=== PATIENT | male | born 1940 | race Caucasian/White ===

== ENCOUNTER 2016-10-19 10:05 | Day surgery (SDC) | payer MEDICARE ==
[~2016-10-19] VITALS: Ht 180.3 cm; Wt 121.5 kg
[2016-10-19] MEDS ORDERED: NEUR400C PO (10:57)
[2016-10-19] MEDS ORDERED: JANT10TA PO (10:57)
[2016-10-19] MEDS ORDERED: ROSU5 PO (10:57)
[2016-10-19] MEDS ORDERED: ASPI81CH7 CHEW (10:57)
[2016-10-19] MEDS ORDERED: AMLO5 PO (10:57)
[2016-10-19] MEDS ORDERED: CARV3.125 PO (10:57)
[2016-10-19] MEDS ORDERED: CARB200T PO (10:57)
[2016-10-19] MEDS ORDERED: BENA10TA PO (10:57)
[2016-10-19] MEDS ORDERED: METF1000 PO (10:57)
[2016-10-19 11:00] VITALS: BP 185/74; PULSE 70; RESP 18; TEMP 97.9; O2SAT 96
[2016-10-19 11:24] LABS: AUTOMATED NEUTROPHIL # 3.7 TH/MM3 (1.8-7.7); BASOPHIL % 0.7 % (0.0-2.0); EOSINOPHIL # 0.2 TH/MM3 (0-0.4); EOSINOPHIL % 3.2 % (0.0-4.0); HEMATOCRIT 35.5 % (39.0-51.0); HEMO FLAGS DIFF FINAL; MEAN CELL VOLUME 88.7 FL (80.0-100.0); MEAN CORPUSCULAR HEMOGLOBIN 30.7 PG (27.0-34.0); MEAN CORPUSCULAR HGB CONC 34.7 % (32.0-36.0); MONO % 8.1 % (0.0-8.0); PLATELET COUNT 163 TH/MM3 (150-450); RED BLOOD COUNT 4.01 MIL/MM3 (4.50-5.90); RED CELL DISTRIBUTION WIDTH 14.4 % (11.6-17.2); WHITE BLOOD COUNT 5.4 TH/MM3 (4.0-11.0)
[2016-10-19 11:34] LABS: APTT (PATIENT) 29.2 SEC (24.3-30.1); INTERNATIONAL NORMALIZED RATIO 1.2 RATIO; PROTHROMBIN TIME - PATIENT 13.7 SEC (9.8-11.6)
[2016-10-19 11:41] LABS: BICARBONATE 29.9 MEQ/L (21.0-32.0); POTASSIUM 4.2 MEQ/L (3.5-5.1)
[2016-10-19] MEDS ORDERED: NS 1000P @30 MLS/HR (KVO) IV SCH (11:45)
[2016-10-19] MEDS ORDERED: ASPIRIN 81 MG CHEW TAB PO SCH (11:45)
[2016-10-19] MEDS ORDERED: IOHEXOL 350 MG/ML 50 ML BTL (for Cath Lab) OTHER ONE (12:15)
[2016-10-19] MEDS ORDERED: IOHEXOL 350 MG/ML 100 ML BTL (for Cath Lab) OTHER ONE (12:15)
[2016-10-19] MEDS ORDERED: HEPARIN-NS/PF INJ 500 ML ONE (12:17)
[2016-10-19] MEDS ORDERED: MIDAZOLAM HCL 2 MG/2 ML VIAL ONE (12:46)
[2016-10-19] MEDS ORDERED: HEPARIN SODIUM - IV 10,000 UNITS/10 ML VIAL ONE (12:59)
[2016-10-19] MEDS ORDERED: TIROFIBAN INFUSION INJ 250 ML IV ONE (13:02)
[2016-10-19] MEDS ORDERED: CLOPIDOGREL 300 MG TAB ONE (13:12)
[2016-10-19] MEDS ORDERED: ASPIRIN 81 MG CHEW TAB ONE (13:19)
[2016-10-19] MEDS: TIROFIBAN INFUSION INJ 250 ML IV SCH ×2 (13:25→23:21)
[2016-10-19] MEDS ORDERED: MISC INFORMATION XX ONE (13:30)
[2016-10-19] MEDS ORDERED: SODIUM CHLORIDE 0.9% FLUSH 10 ML FLUSH PRN (13:30)
--- NOTE | 2016-10-19 13:49 | CATHPROC ---
[facility] HIS Report Study Information Study Number Admission Scheduled Start Study Start [id number] Oct 19 2016 10:05AM 10/19/2016 Oct 19 2016 12:04PM [place] Service Cardiac Catheterization Admit Source Facility Department Other [facility] - Slot Supervisor Physician and Clinical Staff Initial Christo Jennings Heat Treater Helper [facility],SARA Recorder Jone Mcgowan,RT(R) TECH2 Scrub Miquel Garza RCIS(BS) X-Ray Osmar Jean,RT(R) Procedures Performed Procedure Location (Site) Vessel Name Angiogram LV LV Ventricle Coronary Angiograms LCA Left Coronary Coronary Angiograms RCA Right Coronary L Heart Cath Stent LAD Mid Left Coronary Wire insertion Fem Art (right) Femoral Art Equipment Time Test Director Description Size Mfg Part Number Used/Scraped [id number] 12:59 [employer] WIRE, ASAHI PROWATER 180CM 180CM Used *[id number] CATHETER, FR5 SWAN DIPESH 12:34 MEADOWS SANCHEZ FR 5 110F5 *[id number] Used MONITOR TRANSDUCER, TRUWAVE [id number] 12:34 MEADOWS SANCHEZ * Used W/STOCKCOCK *[id number] TRANSDUCER, TRUWAVE [id number] 12:34 MEADOWS SANCHEZ * Used W/STOCKCOCK *[id number] 538-422 *[id number] [id number] *[id number] *[id number] 12:34 [employer] INDUSTRIES PACK, CCL CUSTOM * Used *[id number] 12:34 [employer] PACER PEN, SKIN DUAL W/ RULER * Used *[id number] 13:08 [employer] STENT, 2.5 12 INTEGRITY 2.5 12 Used *[id number] 13:11 [employer] MEDICAL 30 PENELOPE INDEFLATOR Used *[id number] 13:07 [employer] MEDICAL SHEATH, FR5.5 PRELUDE 11CM FR 5 [id number] Used [id number] 13:01 [employer] MEDICAL SHEATH, FR6.5 PRELUDE 11CM FR 6.5 [id number] Used *[id number] 12:34 [employer] MEDICAL WIRE, 3MMJ .035 180CM 180CM Used *[id number] 12:34 NAMIC MANIFOLD, 4 PORT * Used *[id number] 12:34 [employer] OMNIPAQUE, 350 MG, 150ML 150ML [id number] Used [id number] 12:34 [employer] BLANKET,WARM AIR CCL * Used *[id number] 12:34 TERUM[employer] MEDICAL SHEATH, FR4 TERUMO (10CM) FR 4 [id number] Used Equipment Model, Serial, Lot Number and Expiration Data Description Model Number Serial Number Lot Number Expiration Date STENT, 2.5 12 INTEGRITY [id number] 04-15-2017 History: Current Medications Medication Dosage/Unit Route Frequency Last Date/Time Taken Statins (any) Beta Sherin ASA Coumadin Glucophage NORVASC PLAVIX History: Allergies Allergy Reaction No Known Allergies History: Risk Factors Family History of Hypertension Dyslipidemia Previous ND Previous Heart Failure Premature CAD Yes Yes Yes No No Prior Valve Prior PCI Prior PCIDate Prior CABG Surgery No Yes 10/12/2014 No Cerebrovascular Peripheral Artery Chronic Lung On Dialysis Diabetes Diabetes Therapy Disease Disease Disease No Yes No No Yes Oral History: CV Disease Selection Items Known CAD History: Stress Tests Stress or Imaging Studies Performed Yes Standard Exercise Stress Test No Stress Echo No Stress Test SPECT Stress Test SPECT Result Yes Indeterminant Stress Test CMR No Cardiac CTA Coronary Calcium Score No No History: Other Disease Selection Items CAD HTN Stroke History: Other Current Smoker Method Quit Packs a Day Years Used Pack Years No Cigarettes 22 Years Ago 1 20 20 Labs Hgb (g/dl) Hct (%) WBC (l/cumm) Platelets (thousands) 12.00-18.00 37.00-55.00 4.80-10.80 140.00-450.00 12.3 35.5 5.4 163 BUN (mg/dl) Creatinine (mg/dl) BUN:Creatinine (1:x) 8.00-20.00 0.10-9.00 10.00-20.00 14 0.9 15.6 Na (meq/l) K (meq/l) 138.00-146.00 3.80-5.10 138 4.2 INR (PTT:PT) 0.50-2.00 1.2 CPK-MB (ng/ML) 0.00-7.00 Not Drawn Medication Medication Total Dose (Bolus/Oral) Medication Total Dosage/Unit 1% XYLOCAINE 20 mL AGGRASTAT BOLUS 60 meq/kg ASPIRIN 162 mg HEPARIN 8400 units PLAVIX 600 mg VERSED 1 mg Medications (Bolus/Oral) Medication Time Given Dosage/Unit Administered By Reason VERSED 10/19/2016 12:47:10 PM 1 mg [facility] 1 mg VERSED given in lab by [facility]o Plaza RN via Peripheral IV. Ordered by Christo Howard. 1% XYLOCAINE 10/19/2016 12:47:20 PM 20 mL Christo Howard 20 mL 1% XYLOCAINE given in lab by Christo Howard in Right Groin via Subcutaneous. Ordered by Christo Tran. HEPARIN 10/19/2016 1:00:00 PM 8400 units [facility] 8400 units HEPARIN given in lab by [facility]o [facility] RN via Peripheral IV. Ordered by Christo Howard. AGGRASTAT BOLUS 10/19/2016 1:16:00 PM 60 meq/kg [place] [place] 60 meq/kg AGGRASTAT BOLUS given in lab by [facility]o [facility] RN via Peripheral IV. Amount given = 7200 me q. Ordered by Christo Howard. PLAVIX 10/19/2016 1:20:00 PM 600 mg [place] [place] 600 mg PLAVIX given in lab by [facility]o [facility] RN via Oral. Ordered by Christo Howard. ASPIRIN 10/19/2016 1:21:00 PM 162 mg [facility] 162 mg ASPIRIN given in lab by [facility]o [facility] RN via Subcutaneous. Ordered by Christo Howard. Medication (Drip) Medication Time Given Dosage/Unit Concentration/Unit Diluent (ml) Solution AGGRASTAT DRIP 10/19/2016 1:18:00 PM 0.15 mcg/kg/min 12.5 mg 250 NaCl .9 0.15 mcg/kg/min AGGRASTAT DRIP given in lab by [facility]o Plaza RN via Peripheral IV. Pump/Drip Flow = 21.6 ml/hr using NaCl .9 with a concentration of 12.5 mg in 250 ml. Ordered by Christo Howard. IV Solutions 10/19/2016 12:20:50 PM 0 mL (IV) 500 NaCl .9 Patient arrived on IV Solutions via Peripheral IV. Pump/Drip Flow = 20 ml/hr using NaCl .9. Ordered b Christo Vizcarra. Initial Case Assessment Cardiovascular HR Rhythm NIBP Chest Pain 89 af 115/69 0 Edema Present Skin color Skin None Normal Warm Dry Circulatory - Right Pulses Dorsalis Pedis Femoral 2 2 Scale (0,1,2,3,4,d) Circulatory - Left Pulses Dorsalis Pedis Femoral 2 2 Scale (0,1,2,3,4,d) Circulatory - Lower Extremities Color Lower Right Color Lower Left Normal Normal Neurological State Oriented to time-place- Alert Moves all extremities person Respiration - General SpO2 (%) 94 Final Case Assessment Cardiovascular Edema Present Skin color Skin None Normal Warm Dry Circulatory - Right Pulses Dorsalis Pedis Femoral 2 2 Scale (0,1,2,3,4,d) Circulatory - Left Pulses Dorsalis Pedis Femoral 2 2 Scale (0,1,2,3,4,d) Circulatory - Lower Extremities Color Lower Right Color Lower Left Normal Normal Neurological State Oriented to time-place- Alert Moves all extremities person Final Case Assessment Cardiovascular HR Rhythm NIBP Chest Pain 70 pacer 174/95 0 Edema Present Skin color Skin None Normal Warm Dry Circulatory - Right Pulses Dorsalis Pedis Femoral 2 2 Scale (0,1,2,3,4,d) Circulatory - Left Pulses Dorsalis Pedis Femoral 2 2 Scale (0,1,2,3,4,d) Circulatory - Lower Extremities Color Lower Right Color Lower Left Normal Normal Neurological State Oriented to time-place- Alert Moves all extremities person Respiration - General SpO2 (%) 97 Chronological Log Time Study Chronological Log 12:15:25 Patient arrived via Bed. Vitals capture started with the following parameters, Patient=Adult, Interval=5 min, Initial Pr cyrhub=567 mmHg, 12:18:02 Deflation Rate=5 mmHg 12:19:06 Patient Name, D.O.B, / Armband Verified By R.N. 12:19:07 Consent signed by the physician and the patient and verified by the Slot Supervisor staff. 12:19:10 Patient has been NPO for Less than 6Hrs. 12:19:11 Skin Breakdown- large bruse on lower spine below the waist 12:19:32 GA=889 bpm, LADO=947/69 mmhg, SpO2=97.0 %, Resp=14 B/min, Pain=0, Maurice=10, Espinal=2 12:20:42 Patient Warmer Placed on the Table. 12:20:46 Evangelina Prominences Protected 12:20:48 A # ~SIZE~ IV was noted in the ~SITE~. Grade = ~GRADE~ Patient arrived on IV Solutions via Peripheral IV. Pump/Drip Flow = 20 ml/hr using NaCl .9. Ord ered by Anita, 12:20:50 Christo. 12:20:51 History and physical on the chart or being dictated. Assessment: Initial Case, HR=89 BPM, Rhythm=af, YOVO=419/69 mmhg, Chest Pain=0, Edema=None, Col or=Normal, Skin = Warm, Dry Right Pulses: Dariel Ped=2, Femoral=2 Left Pulses: Dariel Ped=2, Femoral=2 12:20:52 Lower Right Extremities: Color=Normal Lower Left Extremities: Color=Normal Neurological: State=Alert, Ox3, GREENE Respiration: SpO2=94 % 12:21:59 Table restraints applied according to hospital policy 12:22:01 Bilateral groins prepped with 2% chlorhexidine, and with a 3 min. waiting time. 12:24:19 HR=70 bpm, EVKP=548/64 mmhg, SpO2=95.0 %, Resp=19 B/min 12:28:51 HR=78 bpm, EIJG=958/76 mmhg, SpO2=98.0 %, Resp=23 B/min 12:28:53 Reference ECG taken 12:30:53 Pressure channel 1 zeroed. 12:33:54 HR=70 bpm, VMPI=859/56 mmhg, SpO2=99.0 %, Resp=9 B/min, Pain=0, Maurice=10, Espinal=2 12:39:30 HR=70 bpm, JGOH=765/77 mmhg, SpO2=98.0 %, Resp=8 B/min, Pain=0, Maurice=10, Espinal=2 12:43:48 HR=70 bpm, YCMW=970/147 mmhg, SpO2=97.0 %, Resp=10 B/min, Pain=0, Maurice=10, Espinal=2 12:45:41 MD arrived. Time Out. Correct patient, correct procedure,correct physician, ,power injector loaded or not l oaded with contrast with 12:47:05 surgical team present. Time Out Concurred by MD, individual staff and LABORATORY PHLEBOTOMIST in procedure 12:47:10 1 mg VERSED given in lab by [facility]o [facility], RN via Peripheral IV. Ordered by Ayesha Howard 12:47:19 Case Start 20 mL 1% XYLOCAINE given in lab by Christo Howard in Right Groin via Subcutaneous. Ordered by Anita, 12:47:20 Christo. 12:47:30 Access site was Right Femoral Artery. 12:47:40 Access site was Right Femoral Vein. A SHEATH, FR5.5 PRELUDE 11CM FR 5 was advanced into the Fem Vein (right) using the Modified Sirena tiffanie 12:48:41 technique. 12:48:51 HR=79 bpm, MKHP=119/96 mmhg, SpO2=98.0 %, Resp=14 B/min 12:50:51 A CATHETER, FR5 SWAN DIPESH MONITOR FR 5 was inserted via Pulm. Artery (main) Recorded Pressure: PCW, HR=70, Condition=Condition 1 12:52:22 (Pulmonary Capillary Wedge) PCW Recorded Pressure: MPA, HR=70, Condition=Condition 1 12:52:38 (Main Pulmonary Artery) MPA Recorded Pressure: RV, HR=70, Condition=Condition 1 12:53:25 (Right Ventricle) RV Recorded Pressure: RA, HR=70, Condition=Condition 1 12:53:40 (Right Atrium) RA 12:53:50 [place] Dipesh Catheter Removed 12:53:54 HR=69 bpm, GJCA=211/95 mmhg, SpO2=95.0 %, Resp=18 B/min, Pain=0, Maurice=10, Espinal=2 12:54:22 A catheter was advanced over a wire. contrast was used for injections. Recorded Pressure: LV, HR=70, Condition=Condition 1 12:54:54 (Left Ventricle) LV 140/13/15 Recorded Pressure: LV, Ao, HR=70, Condition=Condition 1 12:54:57 (Left Ventricle) LV 141/15/15, (Aorta) Ao 140/73/99 Recorded Pressure: Ao, HR=70, Condition=Condition 1 12:55:25 (Aorta) Ao 115/80/94 12:57:00 The LV was injected at 10 cc/sec for a total of 10. contrast used. 12:57:16 The RCA was injected and visualized at various angles. OMNIPAQUE, 350 MG, 150ML 150ML used . After removing the current catheter a JL 5.0 INFINITI CATHETER FR 4 was advanced over a WIRE, 3 MMJ .035 180CM 12:57:26 180CM. 12:57:35 The LCA was injected and visualized at various angles. OMNIPAQUE, 350 MG, 150ML 150ML used . 12:58:53 HR=70 bpm, LTQH=295/74 mmhg, SpO2=97.0 %, Resp=20 B/min, Pain=0, Maurice=10, Espinal=2 13:00:00 8400 units HEPARIN given in lab by [facility]o [facility] RN via Peripheral IV. Ordered by Christo Howard. A SHEATH, FR6.5 PRELUDE 11CM FR 6.5 was exchanged in the Fem Art (right). This was necessary in order to 13:01:00 accomodate a larger catheter. A XB 3.5 GUIDE CATHETER FR 6 was advanced over a wire. OMNIPAQUE, 350 MG, 150ML 150ML was used for 13:01:35 injections. 13:02:18 A Left Heart Cath was performed. 13:02:26 A WIRE, ASAComviva PROWATER 180CM 180CM was inserted via Fem Art (right). Recorded Pressure: Ao, HR=70, Condition=Condition 1 13:02:35 (Aorta) Ao 160/71/107 13:03:53 HR=70 bpm, OHOF=997/94 mmhg, SpO2=97.0 %, Resp=20 B/min, Pain=0, Maurice=10, Espinal=2 13:08:54 HR=70 bpm, BRNM=825/121 mmhg, SpO2=96.0 %, Resp=24 B/min, Pain=0, Maurice=10, Espinal=2 An STENT, 2.5 12 INTEGRITY 2.5 12 Bare Metal Stent was inserted through a XB 3.5 GUIDE CATHETER FR 6 over a 13:10:17 WIRE, ASAHI PROWATER 180CM 180CM. A STENT, 2.5 12 INTEGRITY 2.5 12 was deployed using a 30 PENELOPE INDEFLATOR at 12 atmospheres for 4 5 seconds in 13:10:30 the LAD Mid. 13:11:42 Delivery device removed 13:12:28 Wire removed 13:14:00 Case End 13:14:40 HR=69 bpm, MDEG=966/97 mmhg, SpO2=97.0 %, Resp=13 B/min, Pain=0, Maurice=10, Espinal=2 60 meq/kg AGGRASTAT BOLUS given in lab by [facility] RN via Peripheral IV. Amount given = 7 200 meq. Ordered 13:16:00 by Arthur. Anita 0.15 mcg/kg/min AGGRASTAT DRIP given in lab by [facility] RN via Peripheral IV. Pump/Drip F low = 21.6 ml/hr 13:18:00 using NaCl .9 with a concentration of 12.5 mg in 250 ml. Ordered by Christo Howard. 13:18:58 HR=70 bpm, UGGR=328/112 mmhg, SpO2=99.0 %, Resp=14 B/min, Pain=0, Maurice=10, Espinal=2 13:20:00 600 mg PLAVIX given in lab by [facility] RN via Oral. Ordered by Christo Howard. 13:21:00 162 mg ASPIRIN given in lab by [facility] RN via Subcutaneous. Ordered by Jorge Howard 13:22:46 ACT (Normal Range 90-180) = 301 13:22:56 Vitals capture stopped. 13:23:06 Patient moved to [facility] Assessment: Final Case, Edema=None, Color=Normal, Skin = Warm, Dry Right Pulses: Dariel Ped=2, Femoral=2 Left Pulses: Dariel Ped=2, Femoral=2 13:23:24 Lower Right Extremities: Color=Normal Lower Left Extremities: Color=Normal Neurological: State=Alert, Ox3, GREENE Assessment: Final Case, HR=70 BPM, Rhythm=pacer, VUUI=479/95 mmhg, Chest Pain=0, Edema=None, Color=Normal, Skin = Warm, Dry Right Pulses: Dariel Ped=2, Femoral=2 Left Pulses: Dariel Ped=2, Femoral=2 13:33:42 Lower Right Extremities: Color=Normal Lower Left Extremities: Color=Normal Neurological: State=Alert, Ox3, GREENE Respiration: SpO2=97 % 13:35:14 In the Fem Art (right) the SHEATH, FR6.5 PRELUDE 11CM FR 6.[address] by Arthur. Rolanda 13:35:27 In the Fem Vein (right) the SHEATH, FR5.5 PRELUDE 11CM FR [address] by Crossma n, Christo. 13:35:53 Sterile dressing applied to site 13:35:54 No case complications noted. 13:35:59 Cine recording checked. 13:36:01 Bedside Report will be given. 13:36:03 Implantable Device card placed in patient's chart. 13:36:05 Contrast Scanned PCI QA completed: Pre-Aaron - 3, Post Aaron - 3, Type - A, Length - 8 mm, Morphology - Concentri c, Indications - Lesion 13:36:13 > 50 non-stem, Pre-Stenosis - 95% and Post Stenosis - 0%. 13:41:08 ACT (Normal Range 90-180) = ~ACT~ End Study - Contrast Media Used In Study Contrast Total Opened (mL) Total Used (mL) Total Wasted (mL) Omnipaque 150 110 40 End Study - Maximum Contrast Load Max Contrast Load (mL) 666.7 End Study - Radiation Exposure Fluoro Time (minutes) 7.7 End Study - Patient Disposition Complications Transferred To Interventional Outcome No Slot Supervisor Holding successful
[2016-10-19] MEDS ORDERED: NITROGLYCERIN-DEXTROSE INJ 250 ML ONE (13:50)
[2016-10-19] MEDS ORDERED: NITROGLYCERIN-DEXTROSE 5% 250 ML for hypertension IV SCH (14:15)
[2016-10-19] MEDS ORDERED: CLOPIDOGREL 300 MG TAB PO ONE (14:30)
[2016-10-19 15:30] VITALS: BP 158/78; PULSE 50; PULSE 52; RESP 20; TEMP 98.8; O2SAT 96
[2016-10-19 19:00] VITALS: BP 157/84; PULSE 71; RESP 20; TEMP 98.4; O2SAT 96
[2016-10-19] MEDS: SODIUM CHLORIDE 0.9% FLUSH 10 ML FLUSH SCH (20:36)
[2016-10-19] MEDS: CARVEDILOL 3.125 MG TAB PO SCH (20:36)
[2016-10-19] MEDS ORDERED: ATORVASTATIN 10 MG TAB PO SCH (21:00)
[2016-10-19 23:00] VITALS: BP 171/82; PULSE 69; RESP 18; TEMP 98.2; O2SAT 96
[2016-10-19] MEDS ORDERED: ZOLPIDEM TARTRATE 10 MG TAB PO ONE (23:00)
[2016-10-20 03:00] VITALS: BP 167/87; PULSE 70; RESP 16; TEMP 98; O2SAT 97
[2016-10-20 04:06] LABS: AUTOMATED NEUTROPHIL # 4.2 TH/MM3 (1.8-7.7); BASOPHIL % 0.3 % (0.0-2.0); EOSINOPHIL # 0.1 TH/MM3 (0-0.4); EOSINOPHIL % 2.1 % (0.0-4.0); HEMATOCRIT 32.3 % (39.0-51.0); HEMO FLAGS DIFF FINAL; LYMPH % 12.7 % (9.0-44.0); LYMPHOCYTE # 0.7 TH/MM3 (1.0-4.8); MEAN CELL VOLUME 89.1 FL (80.0-100.0); MEAN CORPUSCULAR HEMOGLOBIN 31.2 PG (27.0-34.0); MONO % 9.4 % (0.0-8.0); NEUT % 75.5 % (16.0-70.0); PLATELET COUNT 147 TH/MM3 (150-450); RED BLOOD COUNT 3.63 MIL/MM3 (4.50-5.90); RED CELL DISTRIBUTION WIDTH 14.1 % (11.6-17.2); WHITE BLOOD COUNT 5.6 TH/MM3 (4.0-11.0)
[2016-10-20 04:33] LABS: BICARBONATE 28.7 MEQ/L (21.0-32.0); POTASSIUM 3.9 MEQ/L (3.5-5.1)
--- NOTE | 2016-10-20 06:50 | MA ---
cc: PASCUAL SMYTH M.D. DATE 10/19/2016 PROCEDURE PERFORMED Right heart catheterization, left heart catheterization, left ventriculography, coronary angiogram, direct PCI bare metal stent of the mid LAD. INDICATIONS Coronary artery disease, cardiomyopathy, dyspnea on exertion less than half a block, CHF exacerbation, [place] Heart Association Class III congestive heart failure, anginal equivalent, [place] Cardiovascular Society class III angina, unstable angina, moderate size reversible defect in the anteroapical wall, small to moderate central fixed defect in the posterior wall, gated SPECT ejection fraction 44%. Also history of hypertension. PROCEDURE The patient was brought to the cardiac catheterization labs, prepped and draped in the usual sterile fashion. 10 cc's of 1% lidocaine was used to locally anesthetize the right common femoral artery. A 4-Bhutanese sheath was placed in the right common femoral artery. A 5-Bhutanese sheath placed in the right common femoral vein. Right heart catheterization was performed first with the following findings. Pulmonary capillary wedge pressure was 30/28-23. PA pressure 37/14-23. RV pressure 31/9-11. RA pressure 13/10-8 Left heart catheterization was then performed with a 4-Bhutanese JR-4 and a 4-Bhutanese JL-5 diagnostic catheter with the following findings: LV pressure 140/18-19. Ejection fraction 50%. No obvious focal signal wall motion abnormalities. The right coronary artery is dominant. It has a proximal 30% stenosis and has a long mid 40-50% stenosis. It is difficult to tell if this is due to vessel tapering versus obstructive disease. The proximal vessel is probably 275 mm in diameter. The vra-al-lrlzhl segment is probably 2-5 mm in diameter. The left main coronary artery is short. No significant disease angiographically. The left circumflex vessel is a large vessel, mild to moderate disease in the mid segment up to 30-40% angiographically. The first obtuse marginal vessel small vessel probably 1 mm in diameter. No significant obstructive disease. The second obtuse marginal vessel is a small to medium sized vessel 2-5 mm diameter vessel with no significant obstructive disease. The third obtuse marginal vessel actually bifurcates. The proximal segment has mild disease up to 10-20% angiographically. The branches of the bifurcation have no significant obstructive disease. The proximal vessel is probably 3-5 mm in diameter. The branch vessels are probably 2.75-3 mm in diameter. The remainder of the AV groove left circumflex vessel has no significant disease angiographically. The LAD has mild diffuse disease in the proximal segment up to 20% angiographically. The proximal mid segment has a 50-60% stenosis. The mid segment has a 95% stenosis. The LAD is transapical. First, second and third diagonal arteries are small to medium-sized vessels with no significant obstructive disease. DISCUSSION The patient has a moderate size reversible defect in the anteroapical wall. In my medical opinion, I think this is a responded equivocal finding and FFR is not indicated. Typically a stenosis in the mid LAD is 90-95%, therefore the 6-Bhutanese sheath was exchanged for a 4-Bhutanese sheath. 70 units/kilo of heparin was given, ACT 301. The 6-Bhutanese XB 3.0 guide, a 0.014 Prowater guidewire and a 2.5 x 12 Integrity stent was used to directly stent the mid-LAD lesion. NOTE Prior to the stent deployment without the stent deployed, there was only RICKY-I to II flow around the stent. The stent was deployed with one inflation to 12 atmospheres for 20 seconds. Note, 12 atmospheres was required for full stent deployment. The stenosis went from 95% to 0% with RICKY-III flow. CONCLUSION 1. [place] Heart Association class III congestive heart failure anginal equivalent unstable angina, [place] Cardiovascular Society class IV angina, moderate sized reversible defect in the anteroapical wall, culprit 95% stenosis in the mid-LAD. 2. Low to normal LV systolic function at 50%. 3. Elevated right heart pressures as detailed above. 4. Otherwise mild to moderate three-vessel coronary disease in a right dominant system. ASSESSMENT Direct PCI bare metal stent of the mid-LAD from 95% to 0% with RICKY-III flow. RECOMMENDATIONS Aspirin 81 mg daily, Plavix 600 mg p.o. load then 75 mg a day for 12-15 months. I instructed the patient myself personally to resume his Coumadin tomorrow. I have also instructed the patient by myself personally to hold his Metformin/Glucophage for 48. I instructed the patient myself personally to follow up with me on Sunday October 23, 2016. MD SHERRIE Dooley/EDDIE /1:22 PM /6:32 AM
[2016-10-20] MEDS: CARVEDILOL 3.125 MG TAB PO SCH (08:03)
[2016-10-20] MEDS: SODIUM CHLORIDE 0.9% FLUSH 10 ML FLUSH SCH (08:04)
[2016-10-20 08:15] VITALS: BP 197/105; PULSE 73; RESP 18; TEMP 99.1
[2016-10-20] MEDS ORDERED: CLOPIDOGREL 75 MG TAB PO SCH (09:00)
[2016-10-20] MEDS ORDERED: ASPIRIN 81 MG CHEW TAB PO SCH (09:00)
[2016-10-20] MEDS ORDERED: LISINOPRIL 5 MG TAB PO SCH (09:00)
[2016-10-20] MEDS ORDERED: PLAV75TA29 PO (10:09)
--- NOTE | 2016-10-20 17:20 | EKG ---
Date Performed: 10/20/2016 Time Performed: 05:48:58 PTAGE: 75 years EKG: Paced rhythm Abnormal ECG PREVIOUS TRACING : 10/19/2016 11.07 Compared to prior tracing no significant change DOCTOR: Archana Strickland Interpretating Date/Time 10/20/2016 17:20:10
--- NOTE | 2016-10-20 18:01 | EKG ---
Date Performed: 10/19/2016 Time Performed: 11:07:18 PTAGE: 75 years EKG: Pacemaker rhythm Abnormal ECG NO PREVIOUS TRACING DOCTOR: Archana Strickland Interpretating Date/Time 10/20/2016 17:59:26
== END 2016-10-20 10:45 | disposition home or self-care (01) ==
LOC: HDOC 10:05 → HDIC 10:06 → HCIS 16:01 → HDOC 10-20 10:45
PROVIDERS: ATTEND Internal Medicine Interventional Cardiology
DX: I25.110 Atherosclerotic heart disease of native coronary artery with unstable angina pectoris (principal); I42.9 Cardiomyopathy, unspecified; I50.9 Heart failure, unspecified; I10 Essential (primary) hypertension
CPT/HCPCS: 80048; 82550; 85002; 85025; 85610; 85730; 92928; 93005; 93458; C1769; C1876; C1887; C1893; J1644; J2250; J3246; Q9967